=== PATIENT | female | born 1980 | race Caucasian/White ===

== ENCOUNTER 2024-06-18 16:36 | Emergency (ER) | payer BC, SELFPAY ==
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
[2024-06-18 16:45] VITALS: BP 151/78; PULSE 71; RESP 16; TEMP 36.9; O2SAT 100
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
[2024-06-18 16:57] VITALS: BP 151/78; PULSE 71; RESP 16; TEMP 36.9; O2SAT 100
== END 2024-06-18 17:18 | disposition home or self-care (01) ==
PROVIDERS: Emergency Provider Nurse Practitioner Family; PCP Family Medicine
DX: M79.641 Pain in right hand (principal); I10 Essential (primary) hypertension; Z79.1 Long term (current) use of non-steroidal anti-inflammatories (NSAID); Z79.899 Other long term (current) drug therapy; Z87.891 Personal history of nicotine dependence
CPT/HCPCS: 73130; 99213; G0463